=== PATIENT | female | born 1940 | race Caucasian/White ===

== ENCOUNTER → 2016-06-23 | Outpatient (CLI) | payer MEDICARE, BC ==
[~2016-06-23] MED LIST: ADVA250A INH; LORT5TAB PO; PRIM250 PO; RAMI10CA PO; SPIRCAP INH; VESICARE PO; VYTO10TA35 PO
== END ==
LOC: ELAB 08:44
PROVIDERS: ATTEND Internal Medicine Gastroenterology
DX: K86.81 Exocrine pancreatic insufficiency (principal); R19.7 Diarrhea, unspecified
CPT/HCPCS: 36415; 83519